=== PATIENT | male | born 1980 | race American Indian/Alaskan Native ===

== ENCOUNTER 2018-11-13 11:04 | Inpatient (IN) | payer MEDICARE, OTHER ==
--- NOTE | 2018-11-13 11:26 | ED PDOC ---
Arrival/HPI - General Historian: Parent - History of Present Illness Narrative History of Present Illness (Text): 11/13/18 11:40 37 year old male, with a past medical history of autism and seizures (controlled for 6 months), presents with his mother after reportedly having 5 seizures over the past two days. Mother states seizures are "shaking all over" for "a few seconds" that resolve spontaneously. Last seizure was half hour prior to arrival. Patient reportedly is currently at his baseline mental status, which she states is typical for when he has seizures. Patient as per mother takes Eligio and sees Dr. Mercado. She denies any change in medication or any fevers or injury. Patient is autistic and is poor historian, history is obtained via mother who is power of civil rights attorney. Mother denies any allergies or any new medications. PMD Dr. López Neurologist: Dr. Mercado Time/Duration: Prior to Arrival, 4-6 hours Symptom Onset: Gradual Symptom Course: Unchanged Activities at Onset: Light Context: Home Past Medical History - Provider Review Nursing Documentation Reviewed: Yes Family/Social History - Physician Review Nursing Documentation Reviewed: Yes Family/Social History: Unknown Family HX Allergies/Home Meds Allergies/Adverse Reactions: Allergies No Known Allergies Allergy (Verified 11/13/18 11:28) Home Medications: Home Meds Medication Instructions Recorded Confirmed Desloratadine [Clarinex] 5 mg PO DAILY 11/13/18 11/13/18 Levetiracetam [Keppra] 3 tab PO BID 11/13/18 11/13/18 Risperidone [Risperdal] 1 mg PO BID 11/13/18 11/13/18 Review of Systems - Review of Systems Systems not reviewed;Unavailable: Other (patient autisitic with poor communication skills currently) Constitutional: absent: Fevers Eyes: absent: Vision Changes Respiratory: absent: SOB Gastrointestinal: absent: Abdominal Pain, Vomiting Musculoskeletal: absent: Back Pain Skin: absent: Rash Neurological: Seizure. absent: Focal Weakness Psychiatric: Anxiety Physical Exam Vital Signs Reviewed: Yes Appearance: Positive for: Non-Toxic Pain Distress: None Mental Status: Positive for: other (patient pacing room back and forth, is not c ooperating with evaluation, but is at baseline as per mother) - Systems Exam Head: Present: Atraumatic Pupils: Present: PERRL Extroacular Muscles: Present: EOMI Conjunctiva: No: Injected Mouth: Present: Moist Mucous Membranes Pharnyx: No: ERYTHEMA Neck: Present: Normal Range of Motion, Other (cheloid noted to soft tissue of neck, no erythema or drainage). No: Meningeal Signs Respiratory/Chest: No: Respiratory Distress Cardiovascular: Present: Tachycardic Abdomen: No: Tenderness, Distention Back: No: Midline Tenderness Upper Extremity: Present: Neurovascularly Intact. No: Cyanosis Lower Extremity: Present: NORMAL PULSES, Neurovascularly Intact Neurological: Present: Motor Func Grossly Intact, Normal Sensory Function, Gait Normal, Other (no facial droop or change in baseline speech pattern, ambulatory with steady gait, moves all extremities equally and well) Skin: Present: Warm Psychiatric: Present: Alert, Other (history of autism). No: Normal Insight, Normal Concentration Medical Decision Making ED Course and Treatment: 11/13/18 11:47 Patient arrives with mother, who states patient has had 5 seizures over past two days, most recently half hour prior to arrival. On initial evaluation he is in hallway chair with mother, unwilling to be evaluated or go to stretcher. He currently is at his baseline neurologic status as per mother, although he does have history of autism and mother states that typically "he doesn't like to be seen by doctors" and he is resistant to be evaluated. Given history of reported multiple seizures after having none for reportedly 6 months, I recommended further evaluation to patient and his mother, including labs, monitoring. Treatment options at this point reviewed as patient uncooperative with any blood tests or imaging, although with serial exams he does not appear to be in any distress and is easily ambulatory. 11/13/18 12:06 Patient witnessed to have seizure at 1150. Patient was ambulating, both mother and I witnessed patient to stop pacing and stare out while standing. When I approached patient he was gazing to left and he was able to be eased down to floor gently and was then noted to have tonic clonic activity and facial twitching for 10-15 seconds, then resolved. Was briefly postictal, placed in stretcher and iv line established. Patient required restrains as he became a gitated and resisted iv placement and treatment for recurrent seizures. For patient safety, restrains applied. IV ativan 2mg administered after reviewing treatment plan with mother who was present during whole episdoe. Will conitnue serial exams and monitor, plan labs and ct head. 11/13/18 14:23 On reassessment patient is calm, sleepy but arousable after Ativan. No further seizures noted. CT head unremarkable. Patient denies pain or discomfort. As patient with multiple seizures over past two days, will admit to monitored bed for serial neuro exams. No status epilepticus noted currently. He will respond to mother's voice and exhibits no respiratory distress. I discussed case with Dr. Mercado, the patient's neurologist. Patient's mother states patient currently is taking Keppra 750mg three pills BID. Patient will be admitted to hospitalist service, covering for his PMD Dr. López, case accepted by Dr. Xi Villalta. I discussed treatment plan with mother, who is agreeable to current treatment plan. 11/13/18 15:[address] reviewed by radiologist, shows: No acute findings. 11/13/18 15:30 Chest X-ray reviewed by radiologist, shows: No active disease. - RAD Interpretation Employment Officer: Radiologist - EKG Interpretation EKG Interpretation (Text): 11/13/18 14:26 EKG at 12:43 sinus tachycardia rate of 112 with possible left atrial enlargement, no acute st elevations Interpreted by ED Physician: Yes Type: 12 lead EKG - Scribe Statement The provider has reviewed the documentation as recorded by the Ondina Koehlerwale Provider Scribe Attestation: All medical record entries made by the Scribe were at my direction and personal ly dictated by me. I have reviewed the chart and agree that the record accurately reflects my personal performance of the history, physical exam, medical decision making, and the department course for this patient. I have also personally directed, reviewed, and agree with the discharge instructions and disposition. Disposition/Present on Arrival - Present on Arrival Any Indicators Present on Arrival: No - Disposition Have Diagnosis and Disposition been Completed?: Yes Diagnosis: Recurrent seizures Disposition: HOSPITALIZED Disposition Time: 13:00 Patient Plan: Admission, Telemetry Patient Problems: Current Active Problems Problem Status Onset Recurrent seizures Acute Condition: SERIOUS
[2018-11-13 11:28] VITALS: BMI 32.1
[2018-11-13 12:21] LABS: BASO # 0.07 K/mm3 (0.0-2.0); BASO % 0.9 % (0.0-3.0); EOS # 0.1 (0.0-0.7); EOS % 0.6 % (1.5-5.0); HEMOGLOBIN 13.1 g/dL (14.0-18.0); LYMPH # 2.7 (1.2-3.4); LYMPH % 34.8 % (22.0-35.0); MEAN CELL VOLUME 71.6 fl (80.0-105.0); MEAN CORPUSCULAR HEMOGLOBIN 22.7 pg (25.0-35.0); MEAN CORPUSCULAR HGB CONC 31.6 g/dl (31.0-37.0); MEAN PLATELET VOLUME 11.1 fl (7.0-11.0); MONO # 1.1 (0.1-0.6); MONO % 13.6 % (1.0-6.0); RBC 5.78 10^6/uL (3.5-6.1); RED CELL DISTRIBUTION WIDTH 14.9 % (11.5-14.5); WHITE BLOOD COUNT 7.8 10^3/uL (4.5-11.0)
[2018-11-13 12:25] LABS: INR 1.3; PROTHROMBIN TIME 14.7 SECONDS (9.4-12.5)
[2018-11-13 12:28] LABS: ALB/GLOB RATIO 1.4 (1.1-1.8); ALT/SGPT 43 U/L (7-56); AST/SGOT 40 U/L (17-59); BLOOD UREA NITROGEN 13 mg/dL (7-21); CALCIUM 9.9 mg/dL (8.4-10.5); GFR NON-AFRICAN AMERICAN > 60
[2018-11-13 12:39] LABS: TROPONIN I < 0.01 ng/mL
[2018-11-13] MEDS ORDERED: Sodium Chloride 0.9% 1,000 ML IV STA (12:42)
[2018-11-13 12:48] LABS: CK-MB 4.5 ng/mL (0.0-3.6)
--- NOTE | 2018-11-13 13:35 | CT ---
Date of service: 11/13/2018 PROCEDURE: CT HEAD WITHOUT CONTRAST. HISTORY: seizure COMPARISON: None available. TECHNIQUE: Axial computed tomography images were obtained through the head/brain without intravenous contrast. Radiation dose: Total exam DLP = 2631.34 mGy-cm. This CT exam was performed using one or more of the following dose reduction techniques: Automated exposure control, adjustment of the mA and/or kV according to patient size, and/or use of iterative reconstruction technique. The study was degraded by motion artifact and had to be repeated FINDINGS: HEMORRHAGE: No intracranial hemorrhage. BRAIN: No mass effect or edema. No atrophy or chronic microvascular ischemic changes. VENTRICLES: Unremarkable. No hydrocephalus. CALVARIUM: Unremarkable. PARANASAL SINUSES: Unremarkable as visualized. No significant inflammatory changes. MASTOID AIR CELLS: Unremarkable as visualized. No inflammatory changes. OTHER FINDINGS: None. IMPRESSION: No acute findings
[2018-11-13] MEDS ORDERED: Sodium Chloride 0.9% 1,000 ML IV SCH (14:00)
--- NOTE | 2018-11-13 14:05 | CP.PCM.HP ---
<Darnell Merino - Last Filed: 11/13/18 13:54> History of Present Illness - History of Present Illness History of Present Illness: CC: witnessed seizures HPI: 37 M with a PMHx of meningitis with residual cognitive deficits, autism, epilepsy and seasonal allergies presented to the [facility] ED with complaints of 4-5 seizures today and 3 more seizure over the past couple of days. Patient lives at home with mother who is his primary gas analyst and admits to medication compliance. The patient's first seizure was in 2007, was started on keppra at that time and was seizure free until 2018 where the patient's neurologist, Dr. Mercado increased the patient's keppra dosage with good effect. Patient had been seizure free until this month where he has had roughly 9 seizures. Patient was seen and examined at bedside with mother. As per the patient's mother, patient experienced tonic-clonic seizures, no urinary incontinence, head trauma, or tongue biting. Patient denied fever, chills, shortness of breath, chest pains, abdominal pains, nausea, vomiting, diarrhea, constipation or dysuria. PMHx: meningitis with residual cognitive deficits, autism, epilepsy and seasonal allergies PSHx: Keloid removal SHx: Denied tobacco/etoh/illicit substances, lives with mother FamHx: Father:lung ca Meds: risperdal, keppra, clarinex Allergies: NKDA PMD: Dr. López Neurologist: Dr. Mercado Present on Admission - Present on Admission Any Indicators Present on Admission: No Review of Systems - Review of Systems Review of Systems: as per HPI otherwise negative Past Patient History - Past Social History Smoking Status: Never Smoked - NEUROLOGICAL Hx Seizures: Yes Other/Comment: autistic - PSYCHIATRIC Hx Substance Use: No Meds Allergies/Adverse Reactions: Allergies Allergy/AdvReac Type Severity Reaction Status Date / Time No Known Allergies Allergy Verified 11/13/18 11:28 Physical Exam - Constitutional Appears: No Acute Distress - Eye Exam Eye Exam: EOMI, Normal appearance, PERRL Pupil Exam: NORMAL ACCOMODATION, PERRL - ENT Exam ENT Exam: Mucous Membranes Moist, Normal Exam - Neck Exam Neck exam: Positive for: Normal Inspection - Respiratory Exam Respiratory Exam: Clear to Auscultation Bilateral, NORMAL BREATHING PATTERN - Cardiovascular Exam Cardiovascular Exam: REGULAR RHYTHM, +S1, +S2 - GI/Abdominal Exam GI & Abdominal Exam: Normal Bowel Sounds, Soft. absent: Tenderness - Extremities Exam Extremities exam: Positive for: normal inspection - Neurological Exam Neurological exam: Alert, Altered, CN II-XII Intact, Reflexes Normal - Psychiatric Exam Psychiatric exam: Normal Affect, Normal Mood - Skin Skin Exam: Dry, Intact, Normal Color, Warm Results - Vital Signs Recent Vital Signs: Last Vital Signs Temp 98.1 F 11/13/18 11:59 Pulse 80 11/13/18 11:59 Resp 20 11/13/18 11:59 BP 130/78 11/13/18 11:59 Pulse Ox 99 11/13/18 11:59 - Labs Result Diagrams: 11/13/18 12:05 11/13/18 12:05 Labs: Laboratory Results - last 24 hr 11/13/18 11/13/18 11/13/18 12:05 12:05 12:05 WBC 7.8 RBC 5.78 Hgb 13.1 L Hct 41.4 L MCV 71.6 L MCH 22.7 L MCHC 31.6 RDW 14.9 H Plt Count 252 MPV 11.1 H Neut % (Auto) 50.1 Lymph % (Auto) 34.8 [place] % (Auto) 13.6 H Eos % (Auto) 0.6 L Baso % (Auto) 0.9 Lymph # (Auto) 2.7 [place] # (Auto) 1.1 H Eos # (Auto) 0.1 Baso # (Auto) 0.07 Absolute Neuts (auto) 3.91 PT 14.7 H INR 1.30 APTT 39.0 H Sodium 145 Potassium 4.2 Chloride 106 Carbon Dioxide 20 L Anion Gap 23 H BUN 13 Creatinine 1.0 Est GFR ( Amer) > 60 Est GFR (Non-Af Amer) > 60 Random Glucose 134 H Calcium 9.9 Magnesium 1.9 Total Bilirubin 0.7 AST 40 ALT 43 Alkaline Phosphatase 80 Lactate Dehydrogenase 630 Total Creatine Kinase 1171 H CK-MB (CK-2) 4.5 H CK-MB (CK-2) % Cancelled Troponin I < 0.01 Total Protein 8.6 H Albumin 5.0 H Globulin 3.6 Albumin/Globulin Ratio 1.4 Assessment & Plan - Assessment and Plan (Free Text) Assessment: 37 M with PMHx of meningitis with residual cognitive deficits, autism, epilepsy and seasonal allergies admitted for recurrent seizures. Seizure disorder - hold risperdal - psych consulted, Dr. Sanchez - seizure precautions - swallow eval - keppra 750mg BID - utox fu - CT Head pending read - neurology consulted, Dr. Velez - beena prn Microcytic Anemia - denied any signs of bleeding - fu iron tibc and ferritin - supplement as needed Rhabdomyolysis - s/p seizure - trend CPK - IVF NS@100ml/hr - continue to monitor GI/dvt ppx: protonix and lovenox Seen reviewed and discussed with Dr. Motta <Shereen Motta - Last Filed: 11/13/18 16:21> Results - Vital Signs Recent Vital Signs: Last Vital Signs Temp 98.1 F 11/13/18 11:59 Pulse 80 11/13/18 11:59 Resp 20 11/13/18 11:59 BP 130/78 11/13/18 11:59 Pulse Ox 99 11/13/18 11:59 - Labs Result Diagrams: 11/13/18 12:05 11/13/18 12:05 Labs: Laboratory Results - last 24 hr 11/13/18 11/13/18 11/13/18 12:00 12:05 12:05 WBC 7.8 RBC 5.78 Hgb 13.1 L Hct 41.4 L MCV 71.6 L MCH 22.7 L MCHC 31.6 RDW 14.9 H Plt Count 252 MPV 11.1 H Neut % (Auto) 50.1 Lymph % (Auto) 34.8 [place] % (Auto) 13.6 H Eos % (Auto) 0.6 L Baso % (Auto) 0.9 Lymph # (Auto) 2.7 [place] # (Auto) 1.1 H Eos # (Auto) 0.1 Baso # (Auto) 0.07 Absolute Neuts (auto) 3.91 PT 14.7 H INR 1.30 APTT 39.0 H Sodium Potassium Chloride Carbon Dioxide Anion Gap BUN Creatinine Est GFR ( Amer) Est GFR (Non-Af Amer) Random Glucose Calcium Magnesium Iron 93 TIBC 294 % Saturation 32 Total Bilirubin AST ALT Alkaline Phosphatase Lactate Dehydrogenase Total Creatine Kinase CK-MB (CK-2) CK-MB (CK-2) % Troponin I Total Protein Albumin Globulin Albumin/Globulin Ratio 11/13/18 12:05 WBC RBC Hgb Hct MCV MCH MCHC RDW Plt Count MPV Neut % (Auto) Lymph % (Auto) [place] % (Auto) Eos % (Auto) Baso % (Auto) Lymph # (Auto) [place] # (Auto) Eos # (Auto) Baso # (Auto) Absolute Neuts (auto) PT INR APTT Sodium 145 Potassium 4.2 Chloride 106 Carbon Dioxide 20 L Anion Gap 23 H BUN 13 Creatinine 1.0 Est GFR ( Amer) > 60 Est GFR (Non-Af Amer) > 60 Random Glucose 134 H Calcium 9.9 Magnesium 1.9 Iron TIBC % Saturation Total Bilirubin 0.7 AST 40 ALT 43 Alkaline Phosphatase 80 Lactate Dehydrogenase 630 Total Creatine Kinase 1171 H CK-MB (CK-2) 4.5 H CK-MB (CK-2) % Cancelled Troponin I < 0.01 Total Protein 8.6 H Albumin 5.0 H Globulin 3.6 Albumin/Globulin Ratio 1.4 Attending/Attestation - Attestation I have personally seen and examined this patient.: Yes I have fully participated in the care of the patient.: Yes I have reviewed all pertinent clinical information: Yes Notes (Text): 11/13/18 16:17 37 year old male with past medical history of seizure disorder and autism who presents with recurrent seizures since Monday, including few episodes while in ER. CT head was negative for acute findings. Continue with keppra. Continue with seizure precautions. Neurology evaluation is requested. Hold risperdal for now if it can lower seizure threshhold; will have psychiatrist input. Agree with iv fluids for rhabdomyolysis. Will repeat CPK in AM. Anemia workup is ordered for mild anemia. Shereen Motta MD Hospitalist.
[2018-11-13 14:36] LABS: IRON 93 ug/dL (45-180)
[2018-11-13 14:45] LABS: % IRON SATURATION 32 % (20-55); TOTAL IRON BINDING CAPACITY 294 ug/dL (261-462)
--- NOTE | 2018-11-13 15:02 | RAD ---
Date of service: 11/13/2018 PROCEDURE: CHEST RADIOGRAPH, 1 VIEW HISTORY: seizures COMPARISON: None available. FINDINGS: LUNGS: Clear. PLEURA: No pneumothorax or pleural fluid seen. CARDIOVASCULAR: No aortic atherosclerotic calcification present. Normal. OSSEOUS STRUCTURES: No significant abnormalities. VISUALIZED UPPER ABDOMEN: Normal. OTHER FINDINGS: None. IMPRESSION: No active disease.
[2018-11-13 18:45] VITALS: O2SAT 98
[2018-11-13 19:37] VITALS: BP 150/80; PULSE 89; RESP 18; TEMP 97.9
--- NOTE | 2018-11-14 08:26 | CP.PCM.PCO ---
Physician Communication Note - Physician Communication Note Physician Communication Note: pt was d/c AMA over night.
--- NOTE | 2018-11-14 09:07 | CARD ---
APPROVED REPORT Date of service: 11/13/2018 EKG Measurement Heart [id number] <Conclusion> Sinus tachycardia Possible Left atrial enlargement Borderline ECG
[2018-11-14] MEDS ORDERED: Enoxaparin 40 mg Syringe SC SCH (10:00)
== END 2018-11-13 19:49 | disposition left against medical advice (07) | DRG 101 ==
LOC: ED 11:04 → ERH 12:57 → 2RNO 15:57
PROVIDERS: ADMIT Hospitalist; ATTEND Internal Medicine
DX: G40.909 Epilepsy, unspecified, not intractable, without status epilepticus (principal); F84.0 Autistic disorder; M62.82 Rhabdomyolysis; D50.9 Iron deficiency anemia, unspecified